=== PATIENT | female | born 1965 | race Caucasian/White ===

== ENCOUNTER → 2017-01-24 | Outpatient (CLI) | payer MEDICARE, MEDICAID ==
[~2017-01-24] MED LIST: ALBUMIN; BENADRYL25 MG PO; BENEFIBER)(NUTR1 PKT PO; CHLORASEPTIC SP1 BOT PO; DEXTROSE 50%-WA50 ML IVP; DEXTROSE 50%50 ML IVP; DEXTROSE IVP; DIFLUCAN100 MG PO; DULCOLAX10 MG R; DURAGESIC 12 M12 MCG TOP; DURAGESIC 25MC25 MCG TOP; EPOGEN (2020000 UNIT SUB-Q; EPOGEN2000 UNIT/ SUB-Q; EUCERIN CREME120 GM TOP; FENTANYL IVP; FLEET ENEMA133 ML R; FLORASTOR250 MG PO; FORTAZ1 GM IV; GLUCAGON/GLUCAGE1 MG; GLUCAGON/GLUCAGE1 MG SUB-Q; GLUCOSE4 GM PO; HUMULIN R100 UNIT/1 SUB-Q; IMODIUM2 MG PO; INVANZ1 G1; LEVAQUIN500 MG PO; LIDOCAINE 1% MD20 M1 IDER; LIDODERM 5% P1 PATCH TRANS; LOMOTIL 2.5-0.1 EACH PO; LOPRESSOR25 MG PO; LOVENOX 3030 MG/0.3 SUB-Q; MASOPHEN500 MG PO; MIDODRINE HCL10 MG PO; MIDODRINE HCL5 MG PO; MILK OF MA400 MG/5 M PO; MIRALAX17 GM PO; MORPHINE 2MG/2 MG/ML SUB-Q; MYLANTA (MAG-AL30 ML PO; NEURONTIN100 MG PO; NEURONTIN300 MG PO; NORCO 5-325 MG1 TAB PO; NOVOLIN-R100 UNIT/M SUB-Q; NOVOLOG100 UNIT/M SUB-Q; PEPCID20 MG PO; PERCOCET [ROXIC1 TAB PO; PHENERGAN WITH15 ML; PHENERGAN25 M1 PO; PHENERGAN25 MG/1 M1 IM; PROAMATINE5 MG PO; PROTONIX40 MG PO; RENVELA2.4 GM; RENVELA800 MG PO; ROXANOL PO; SURFAK240 MG PO; TEARGEN1 BOT OPHTH; TRESIBA FL100 UNIT/1 SUB-Q; TURMERIC500 MG PO; TYLENOL EXTRA500 MG PO; TYLENOL WITH C1 EACH PO; TYLENOL325 MG PO; ULTRAM50 MG PO; VALIUM5 MG PO; VANCOMYCIN1 G1 IV; VENTOLIN HFA18 GM INH; VITAMIN C500 M1 PO
== END | disposition disaster alternative care site (69) ==
LOC: GRAD 01-23 14:00 → GLAB 11:00 → GRAD 11:00
DX: C54.1 Malignant neoplasm of endometrium (principal); K14.8 Other diseases of tongue; K80.20 Calculus of gallbladder without cholecystitis without obstruction; K57.30 Diverticulosis of large intestine without perforation or abscess without bleeding; R59.0 Localized enlarged lymph nodes; R93.8 Abnormal findings on diagnostic imaging of other specified body structures; Z90.710 Acquired absence of both cervix and uterus

== ENCOUNTER 2017-03-16 05:46 | Observation (INO) | payer MEDICARE, MEDICAID ==
[~2017-03-16] VITALS: Ht 180.3 cm; Wt 120.8 kg
--- NOTE | ~2017-03-16 | OR ---
PAT[facility]GE[facility] 51 Y [address] ROOM: [place] [id number] LOCATION: GICU ADMIT DATE: 03/16/2017 OR/Procedure Report DISCHARGE DATE: FAMILY PHYSICIAN: Casa Dave ATTENDING PHYSICIAN: JAY MUJICA SURGEON: Jay Mujica MD WEATHERIZATION INSTALLER: None. DATE OF PROCEDURE: 03/16/2017 PREOPERATIVE DIAGNOSIS: Lingual tonsillar hypertrophy. POSTOPERATIVE DIAGNOSIS: Lingual tonsillar hypertrophy. PROCEDURES PERFORMED: 1. Microdirect laryngoscopy. 2. Rigid bronchoscopy. 3. Endoscopic coblation, lingual tonsillectomy. SURGEON: Jay Mujica MD ANESTHESIA: General nasotracheal by awake fiberoptic intubation. ESTIMATED BLOOD LOSS: 50 mL. FINDINGS: 1. Massive bilateral lingual tonsillar hypertrophy without evidence of other ulceration or mass. Epiglottis is slightly edematous but without mass. 2. Endolarynx, unremarkable. 3. True vocal folds, unremarkable. 4. Subglottis is unremarkable. 5. Trachea with significant tracheomalacia. 6. Mainstem bronchi with significant bronchomalacia without mass or other lesion. SPECIMENS: Midline base of tongue. INDICATIONS: The patient is a 51-year-old female, who presented to me with dysphagia and base of tongue mass. She had been identified to have the same by another ENT and was taken to the OR previously for lingual tonsillectomy. However, this was aborted after failed intubation attempts. We discussed coblation lingual tonsillectomy with biopsy as well as laryngoscopy, rigid bronchoscopy with a nasotracheal intubation. She provided informed consent. DESCRIPTION OF PROCEDURE: The patient was brought from the preoperative area to the operating suite, placed on the table in supine position. All pressure PATIENT'S NAME: [facility] AGE: 51 Y [address] ROOM: [place] [address] LOCATION: GICU ADMIT DATE: 03/16/2017 OR/Procedure Report DISCHARGE DATE: FAMILY PHYSICIAN: Casa Dave ATTENDING PHYSICIAN: JAY MUJICA points were padded. Time-out was performed correctly identifying the patient and the procedure. Nasotracheal intubation was achieved with awake fiberoptic intubation techniques. The patient tolerated this extremely well and intubation was achieved without significant difficulty. She was then rotated counterclockwise 90 degrees from anesthesia. A 2-0 silk suture was placed through the anterior oral tongue and used for retraction. A bite block was placed into the left dentition. A 70-degree nasal endoscope was used for endoscopic evaluation of the base of tongue, and the standard EVac 70 Coblation wand was used with a slight bend to perform lingual tonsillectomy. This was performed with endoscopic techniques to the level of the vallecula at which point, the Fanta laryngoscope was inserted and Coblation tonsillectomy was utilized through the Fanta. Complete lingual tonsillectomy was achieved with Coblation bipolar coagulation used for hemostasis when needed. No significant bleeding was encountered throughout the procedure. A small amount of Coblation energy was noted after the fact on the tip of the epiglottis, but no significant damage resulted. A Microdirect laryngoscopy was performed with the rigid telescope and the Fanta laryngoscope followed by an anterior commissure scope. No evidence of piriform sinus, vallecular, or supraglottic mass was identified. The endolarynx was unremarkable. The cuff was taken down, and the telescope passed through for tracheoscopy and rigid bronchoscopy with findings as noted above. This was removed, the cuff reinflated, and hemostasis once again ensured with the Coblation wand. Injection of 1% lidocaine with epinephrine was performed in various spots around the base of tongue in a submucosal plane. This tissue was removed from the anterior tongue as well as a bite block. She was returned to the care of Anesthesia, extubated, nasal trumpet placed, and she was transferred to the PACU in stable condition. MD LIZA CARBALLO/wen /[id number] d: 03/16/17 1535 t: 03/24/17 1110, OPERATIVE SUMMARY
--- NOTE | ~2017-03-16 | CON ---
PATIENT'S NAME: CHRYSTAL MARTINEZ [facility] AGE: 51 Y [address] ROOM: [id number] [place], [place] [address] LOCATION: GICU ADMIT DATE: 03/16/2017 Consultation DISCHARGE DATE: 03/18/2017 FAMILY PHYSICIAN: Casa Dave ATTENDING PHYSICIAN: Nader Peace DATE OF CONSULTATION: 03/17/2017 REASON FOR CONSULTATION: End-stage renal disease and need for hemodialysis therapy. HISTORY OF PRESENT ILLNESS: A 51-year-old female with history of end-stage renal disease, possibly secondary to hypertension and diabetes; stage IV uterine/endometrial cancer, status post chemotherapy x6 cycles; and now lingual tonsillar hypertrophy, status post tonsillectomy by fiberoptic bronchoscope, currently in ICU. Nephrology consultation has been called for dialysis management. She generally goes to [facility] as per Monday- Monday-Monday schedule for her routine hemodialysis. Her access is right arm AV fistula. She goes for dialysis for 4 hours, and her average weight gain is about 5-6 L. Blood pressure is typically low, and she uses midodrine 20 mg before the dialysis and 10 mg at the mid-run. She denied any significant symptoms at this point. Denies any chest pain, shortness of breath, orthopnea, or PND. She has had a nasal cannula overnight, but now it has been removed, so she is feeling much better. No nausea, vomiting, or diarrhea. Makes minimal urine at this point. PAST MEDICAL HISTORY: 1. End-stage renal disease, possibly secondary to hypertension and diabetes from 2012. 2. Type 2 diabetes mellitus dating to at least since 1988. 3. Hypertension. 4. Coronary artery disease. 5. Morbid obesity. 6. Obstructive sleep apnea. 7. Endometrial cancer, diagnosed in 2014, status post chemotherapy x5 cycles. 8. Left bundle branch block. 9. Borderline personality disorder. 10. Migraine. 11. Allergic rhinitis. PAST SURGICAL HISTORY: 1. AV fistula placement in 2013. 2. Tonsillectomy in 2012 and now in 2016. 3. Multiple surgeries of osteomyelitis of right foot and status post right below-knee amputation. 4. Removal of malignant melanoma. 5. Pericardial window placement in 2013. ALLERGIES: NONE KNOWN. SOCIAL HISTORY: Former smoker, used to smoke 1-2 packs a day, does not recall when she quit smoking completely, given up, in the sense she has not smoked for quite some time. Does not use much alcohol.PATIENT'S NAME: CHRYSTAL MARTINEZ [facility] AGE: 51 Y [address] ROOM: [id number] [place], [place] [address] LOCATION: [facility] ADMIT DATE: 03/16/2017 Consultation DISCHARGE DATE: 03/18/2017 FAMILY PHYSICIAN: Casa Dave ATTENDING PHYSICIAN: Nader Peace MEDICATIONS: As per the chart. FAMILY HISTORY: Mother of cervical cancer and chronic obstructive pulmonary disease. Sister has a history of hysterectomy for cervical adenocarcinoma. Lives in a half-way facility in [place]. REVIEW OF SYSTEMS: GENERAL: No fever. No chills or rigor. HEENT: No sore throat. No sinus congestion. CVS: No chest pain. No exertional shortness of breath. No leg swelling. RESPIRATORY: No shortness of breath. No cough. No wheezing. GENITOURINARY: No pain with urination. No increased frequency. No nocturia. GASTROINTESTINAL: No abdominal pain. No abdominal distention. No nausea or vomiting. NEUROLOGIC: No weakness. No seizures. SKIN: No rash. No itching. ALLERGIES: No seasonal allergy. No hayfever. ENDOCRINE: No heat intolerance. No cold intolerance. PSYCHIATRIC: No sadness. No crying spells. No history of panic attack. PHYSICAL EXAMINATION: VITAL SIGNS: Blood pressure 100/50s, pulse 80s, respiratory rate 20s, temperature 97.8, body weight 120 kg. GENERAL: Not in apparent distress. HEAD: Moist mucous membranes. Bilateral PERRLA, EOMI. NECK: No JVD, thyromegaly or lymphadenopathy. CVS: S1 and S2 normal, regular rate and rhythm. No murmur, rub, gallop. CHEST: Bilateral air entry equal. No wheeze or rales. ABDOMEN: Soft, nontender, nondistended. Bowel sounds present. EXTREMITIES: No cyanosis, clubbing, jaundice. No dependent edema. MUSCULOSKELETAL: No limitation of range of motion. Right upper arm AV fistula. Positive thrill and bruit. No dependent edema. SKIN: No pallor, cyanosis, icterus. TUBE TRAILER FILLER: Alert and oriented x3. No gross findings. LABORATORY EVALUATION: WBC 11.1, hemoglobin 10.4, platelet 161. Chemistry: Sodium 129, potassium 5.7, chloride 88, bicarbonate 27, BUN 73, creatinine 9.9, glucose 352, calcium 7.8, albumin 3.1, INR 0.98.PATIENT'S NAME: CHRYSTAL MARTINEZ [facility] AGE: 51 Y [address] ROOM: [place] [address] LOCATION: CU ADMIT DATE: 03/16/2017 Consultation DISCHARGE DATE: 03/18/2017 FAMILY PHYSICIAN: Casa Dave ATTENDING PHYSICIAN: Nader Peace ASSESSMENT AND PLAN: 1. End-stage renal disease, etiology not properly known, but possibly secondary to hypertension and diabetes. Currently on center dialysis on Joor[facility]-Gxofcpxzf-Werys[facility] schedule. Last dialysis was on Monday. 2. Type 2 diabetes, insulin dependent. 3. Hypertension. Currently, blood pressure in the low range and needs midodrine to counter intradialytic hypotension. 4. Morbid obesity. 5. Anemia, possibly multifactorial with an iron deficiency as well as anemia of chronic disease. 6. Mild hyponatremia, possibly due to excess free water intake. RECOMMENDATION: The patient is seen and examined on dialysis getting dialysis on 2K bath for 4 hours with a goal ultrafiltrate of 2-3 L. We will continue the midodrine which she takes 20 mg before dialysis and 10 mg at mid-run to nullify the intradialytic hypotension. We will use the right arm AV fistula as it is functioning well with positive thrill and bruit. Regarding the tonsillectomy, ENT surgeon is on board and managing the patient as per their management. Thank you for allowing me to participate in this patient's care. I will closely monitor the patient's progress along with you. DOMINGO NEVES MD /modl /[id number] d: 03/17/172 t: 03/30/17 1601, CONSULTATION REPORT
--- NOTE | ~2017-03-16 | DS ---
PATIENT'S NAME: CHRYSTAL MARTINEZ [facility] AGE: 51 Y [address] ROOM: [address] [address] [place]ATION: [facility] [place] ADMIT DATE: 03/16/2017 Discharge Summary DISCHARGE DATE: 03/18/2017 FAMILY PHYSICIAN: Casa Dave ATTENDING PHYSICIAN: Nader Peace ADMISSION DIAGNOSIS: Lingual tonsillar hypertrophy. SECONDARY DIAGNOSES: 1. Renal failure. 2. Diabetes mellitus type 2. PROCEDURES: Surgeries performed during admission, on 03/16/2017, Dr. Peace performed lingual tonsillectomy, microdirect laryngoscopy, and rigid bronchoscopy. REASON FOR ADMISSION: The patient is a 51-year-old female who was identified to have large lingual tonsils as well as difficulty with swallowing. After discussion of the risks, as an outpatient, she provided consent for lingual tonsillectomy. This was performed without complication on 03/16/2017. She was admitted thereafter for airway observation and pain control. HOSPITAL COURSE: She proceeded to the ICU after her time in the OR. Her 1st night in the ICU was uneventful without significant desaturations or airway events. She did have some difficulty with swallowing persistent, but was able to tolerate liquids and some food. By the 2nd day, she was feeling better and increasing her oral intake. She was urinating normally. She was unable to ambulate due to previous ftqdy-kxi-eonf amputation. She desired further admission after postoperative day #1 due to concern regarding being able to care for herself at home as well as airway risk. She was therefore transferred to the floor and kept inpatient. She was seen by my partner, Dr. Shipley, on postoperative day #2, at which time, she continued to do well, was continuing to increase her oral intake, had no episodes of airway bleeding or adverse airway events, and therefore was discharged home. Of note, she did undergo dialysis at the direction of Dr. Madrid on postoperative day #1 without complication. DISCHARGE INSTRUCTIONS: She was discharged home on a soft diet. She was encouraged to stay well-hydrated and to use pain medications as directed. She was instructed not to perform any heavy lifting or straining for 1 week. DISCHARGE MEDICATIONS: Included all of her home medications with the addition of Tylenol with Codeine and promethazine. DISPOSITION: Stable at discharge. She will follow up in 1 to 2 weeks for PATIENT'S NAME: CHRYSTAL MARTINEZ [facility] AGE: 51 Y [address] ROOM: [place] [address] LOCATION: [facility] [place] ADMIT DATE: 03/16/2017 Discharge Summary DISCHARGE DATE: 03/18/2017 FAMILY PHYSICIAN: Casa Dave ATTENDING PHYSICIAN: Nader Peace in clinic. MD LIZA CARBALLO/wen /[id number] d: 03/25/17 0416 t: 04/14/17 1243, DISCHARGE SUMMARY
[2017-03-16 07:02] LABS: BASOPHIL # 0.1 K/uL (0.0-0.2); BASOPHIL % 0.7 %; EOSINOPHIL # 0.2 K/uL (0.0-0.5); EOSINOPHIL % 2.4 %; HEMATOCRIT 36.7 % (33.0-46.0); HEMOGLOBIN 11.4 g/dL (10.0-15.0); IMMATURE GRANULOCYTE # 0.1 K/uL (0.0-0.3); IMMATURE GRANULOCYTE % 1.1 %; LYMPHOCYTE # 2.2 K/uL (0.8-4.0); LYMPHOCYTE % 30.3 %; MCH 26.8 pg (27.0-34.0); MCHC 31.1 gm/dL (32.0-36.5); MCV 86.2 fl (83.0-98.0); MONOCYTE # 0.6 K/uL (0.0-1.0); MPV 10.1 fl (9.4-12.4); NEUTROPHIL # (ANC) 4.1 K/uL (1.8-7.8); NEUTROPHIL % 57.5 %; NRBC % 0.4 /100WBC (0-0.00); PLATELET COUNT 195 K/uL (150-450); RBC 4.26 M/uL (3.50-5.50); RDW-CV 17.2 % (11.9-14.6); WBC 7.1 K/uL (4.0-11.0)
[2017-03-16 07:09] LABS: INR - (THERAPEUTIC) 0.98 (0.92-1.07); PROTIME 10.3 SECONDS (9.8-11.4)
[2017-03-16 07:17] LABS: ALBUMIN 3.2 gm/dL (3.5-5.0); ANION GAP 15.9 (10.0-19.0); CALCIUM 8.2 mg/dL (8.5-10.5); POTASSIUM 3.9 mMol/L (3.7-5.1); TOTAL BILIRUBIN 0.6 mg/dL (0.0-1.5)
[2017-03-16 07:18] LABS: CREATININE 7.9 mg/dL (0.5-1.1); TOTAL PROTEIN 9.1 g/dL (6.0-8.4)
--- NOTE | 2017-03-16 17:09 | NUR ---
Significant Event: Patient back to floor at 1200 from PACU. Patient alert/oriented x3. Non compliant with some things, only likes it her way and is not up to negogiation. Refuses to wear her leg pump for VTE prophalaxis. Saline locked IV fluids as she is drinking plenty. ESRD. Does not void according to patient. Did notify Sujata Ulloa APRN of patient being in the hospital and the need for dialysis tomorrow. She stated she would talk to Dr. Bojorquez. Elinor) JEFFRY. She refuses to get up OOB during my shift. Told her it would help with her neck swelling being upright. No cardiac events, SBP slightly elevated, afebrile. HX of MRSA/VRE. Currently on 21% humidifed air. She likes the facial tent, and refuses to take it off. Patient has c/o that her throat is getting worse constantly throughout this shift. Dr. Peace was notified once, but didn't change any orders. He informed her it was going to get worse before it will get better. Starting to get irritated with nursing staff. Patient states she can't swallow, so nursing informed her to stop eating ice chips, and she yeld at nursing staff and said "no". Patient has a nasal trumpet on her right nare. This is to stay until at least tomorrow, Dr. Peace said he would pull it out tomorrow. Follow up:
--- NOTE | 2017-03-17 03:53 | NUR ---
Significant Event: Neurologically intact. Refuses many cares/treatments. VSS. Nasal trumpet in R) nare. 28% humidified air via face swain. Lungs clear and dim. Small amount of pink secretions coughed up. Bowel sounds active. No BM. Anuric. Regular diet. Tolerating liquids well. Saline locked. C/o pain in throat. 10 mg liquid oxycodone given q4h, last dose at 1515. Follow up: Dialysis today. Remove nasal trumpet.
[2017-03-17 09:18] LABS: BASOPHIL % 0.1 %; HEMATOCRIT 32.6 % (33.0-46.0); HEMOGLOBIN 10.4 g/dL (10.0-15.0); IMMATURE GRANULOCYTE # 0.1 K/uL (0.0-0.3); IMMATURE GRANULOCYTE % 0.6 %; LYMPHOCYTE # 0.8 K/uL (0.8-4.0); LYMPHOCYTE % 7.6 %; MCH 27.6 pg (27.0-34.0); MCHC 31.9 gm/dL (32.0-36.5); MCV 86.5 fl (83.0-98.0); MONOCYTE # 0.3 K/uL (0.0-1.0); MPV 10.6 fl (9.4-12.4); NEUTROPHIL # (ANC) 9.8 K/uL (1.8-7.8); NEUTROPHIL % 88.7 %; NRBC % 0 /100WBC (0-0.00); PLATELET COUNT 161 K/uL (150-450); RBC 3.77 M/uL (3.50-5.50); RDW-CV 16.9 % (11.9-14.6); WBC 11.1 K/uL (4.0-11.0)
[2017-03-17 09:31] LABS: ALBUMIN 3.1 gm/dL (3.5-5.0); CALCIUM 7.8 mg/dL (8.5-10.5); PHOSPHORUS 8.2 mg/dL (2.5-4.9)
[2017-03-17 09:32] LABS: ANION GAP 19.7 (10.0-19.0); CREATININE 9.9 mg/dL (0.5-1.1); POTASSIUM 5.7 mMol/L (3.7-5.1)
--- NOTE | 2017-03-17 11:31 | NUR ---
[facility] note: 1130 Consult received, no current A1C on chart, D/C by MD. Patient is gone to Dialysis at this time, but primary care nurse states that patient is "non compliant" at home. At this time it is recommended that staff provide to the patient the Diabetes Management Booklet and Diabetes Survival skills checklist and CDE will check later to assess educational needs. Will continue to follow
--- NOTE | 2017-03-17 14:16 | NUR ---
Diabetes center note: 1400 Spoke with patient regarding A1C, as per chart on 01/19/17, result was 9% in clinic. Patient states that the last A1C was done in [place] at the Dialysis and the result was 7 % (unverified) Denies needing anything in regards to up dating education on diabetes, does request that a script be written for Ultra Fine B-D lancets, because her fingers get sore from checking blood sugars. Patient states she has not completed the assessment form, but is willing to complete that this afternoon, and give to nurses to place on chart. Patient is demanding with various self cares while CDE and acute care nursing assistant are in the room. Offered out-patient services, but refused at this time. Reminded patient to make sure she continues to have regular follow up appointments with primary care jay, patient states, "...oh don't worry I have plenty of those"
--- NOTE | 2017-03-17 15:27 | NUR ---
Stopped in to see Adamaris, she was sitting in her chair when I entered. Introduced myself and CM role to her. At that time, Adamaris told me that she was "to tired to talk or listen to me right now so come back later. I don't have plans right now for discharge so come back later." Told her that this was fine and I would try to come back to talk to her about her plans to return home.
--- NOTE | 2017-03-17 17:07 | NUR ---
SIGNIFICANT EVENT: PATIENT ALERT, ORIENTED X3. PUPILS EQUAL AND REACTIVE. MOVES ALL 4 EXTREMTIIES SPONTANEOUSLY AND TO COMMANDS. R) UPPER EXTREMITY SLIGHTLY WEAKER THAN L), MD AWARE. NO FACIAL ASYMMETRY. DENIES HEADACHES. AT BASELINE PATIENT HAS R) BELOW KNEE AMPUTATION. UP TO CHAIR WITH PT/OT, STAND BY ASSISST. PATIENT REQUIRES A LOT OF REDUNDENT EDUCATION PRIOR TO APPROVING CARES. PATIENT REFUSES TO TURN UNTIL NURSE EDUCATES ABOUT PRESSURE ULCERS AND IMPORTANCE OF REPOSITIONING AND DECREASE OF SWELLING IN NECK THEN PATIENT WILL ALLOW NURSING STAFF TO REPOSITON. PATIENT REFUSED BATH X3 TIMES THIS SHIFT. PATIENT HAS BEEN O N28% HOOF/FACE MASK THROUGHOUT THE SHIFT, SATS MID 90S. REFUSES TO TAKE MASK OFF, STATES IT IS MORE COMFORTABLE WITH MASK. PATIENT HAS BEEN IN SINUS RHYTHM, HR 70-80S. PULSES PALPABLE THROGHOUT DOWN TO POPLITEAL PULSES IN R) LOWER EXTREMITY. BP STABLE, SBP 90S-110S, MAP>65. SOME EDEMA PRESENT. AFEBRILE. BOWEL SOUNDS PRESENT, NO BM. REGULAR DIET R/T PATIENT REFUSING DIABITIC DIET-DR MUJICA AWARE. ACCU CHECKS AC AND HS. NO COMPLICATIONS SWALLOWING. ANURIC THROUGHOUT THE SHIFT, PATIENT STATES THIS IS BASELINE, DR NEVES AWARE. DIALYSIS AT BEDSIDE TODAY. NO NEW SKIN ISSUES NOTED. FOLLOW UP: CONTNUE TO MONITOR TONIGHT, PLAN TO DISCHARGE IN AM.
--- NOTE | 2017-03-18 04:11 | NUR ---
Significant Event: Pt transfered from ICU shortly before 1900. Alert and oriented. Rt BKA. IV SL'd to left posterior forearm. Is non compliant with some cares, refused HS accucheck. Oxycodone liquid given x 2 for sore throat, last dose at 0207. Pt has face tent with 8 liters humidified 02 that she wears PRN comfort. Soft tonsil diet, had lao food for supper last night. Dialysis //Fridays. Anuric throughout shift. Refused bed alram, did wear left pneumatic throughout the night. Plan for discharge today. Follow up:
--- NOTE | 2017-03-18 16:25 | NUR ---
DISMISSED TO CAR PER W/C ACCOMP.BY FRIEND & NURSE TO GO HOME.DISCHARGE INSTRUCTIONS,MEDS,& TEACHING MATERIAL EXPLAINED & GIVEN TO PT.VERBALIZED UNDERSTANDMENT.
== END 2017-03-18 16:30 | disposition disaster alternative care site (69) ==
LOC: GMSU 05:46 → GICU 05:46 → GSDC 05:46 → GICU 12:02 → GMSU 16:00 → GSDC 16:00 → GICU 03-17 05:46 → GSDC 03-17 08:59 → GMSU 03-17 18:55 → GICU 03-17 18:55 → GMSU 03-18 16:30
PROVIDERS: Internal Medicine Nephrology; ADMIT Otolaryngology
PROC: 0CBM8ZZ Excision of Pharynx, Via Natural or Artificial Opening Endoscopic (ICD-10-PCS; principal; 2017-03-16)
DX: J35.1 Hypertrophy of tonsils (principal); K14.8 Other diseases of tongue; J39.8 Other specified diseases of upper respiratory tract; J98.09 Other diseases of bronchus, not elsewhere classified; J38.4 Edema of larynx; J44.9 Chronic obstructive pulmonary disease, unspecified; E11.22 Type 2 diabetes mellitus with diabetic chronic kidney disease; I12.0 Hypertensive chronic kidney disease with stage 5 chronic kidney disease or end stage renal disease; N18.6 End stage renal disease; Z99.2 Dependence on renal dialysis; I25.10 Atherosclerotic heart disease of native coronary artery without angina pectoris; E66.01 Morbid (severe) obesity due to excess calories; G47.33 Obstructive sleep apnea (adult) (pediatric); I44.7 Left bundle-branch block, unspecified; G43.909 Migraine, unspecified, not intractable, without status migrainosus; D64.9 Anemia, unspecified; Z68.36 Body mass index [BMI] 36.0-36.9, adult; Z85.42 Personal history of malignant neoplasm of other parts of uterus; Z87.891 Personal history of nicotine dependence; Z89.511 Acquired absence of right leg below knee; Z79.4 Long term (current) use of insulin; Z79.899 Other long term (current) drug therapy; Z88.8 Allergy status to other drugs, medicaments and biological substances; Z98.890 Other specified postprocedural states
CPT/HCPCS: A9270; G0378; G8978; G8979; G8984; G8985; G8986; G8996; G8997; G8998; J2001; J2250; J2405; J3301; J7030; P9047; Q4081